=== PATIENT | female | born 1985 | race Caucasian/White ===

== ENCOUNTER 2022-01-08 05:18 | Observation (INO) | payer OTHER, SELFPAY ==
[2022-01-08] VITALS (14 sets, daily range): BP systolic 135–159; BP diastolic 87–100; PULSE 73–94; RESP 12–20; TEMP 36.4–36.9; O2SAT 96–99; BMI 29.6
--- NOTE | 2022-01-08 | PATH_ITS ---
[facility] Accession Number: [id number] . 01 Material submitted: . product of conception - RETAINED PLACENTA . 01 Clinical history: . POST BLEEDING . 01 Diagnosis: Retained Placenta: Fragments of endometrium and myometrium in a background of blood and fibrin. No definite products of conception identified. Avulsed portion of atypical squamous mucosa; favor a reactive etiology. No definite squamous dysplasia identified. MRV 01/13/2022 1606 Local . 01 Electronically signed: . Lena Dallas MD, Pathologist NPI- [id number] . 01 Gross description: . Received in formalin labeled with the patient's name and retained placenta consists of multiple red-brown to leblanc soft tissue fragments aggregating to 6.0 x 5.3 x 1.0 cm. [employer] sections are submitted in cassettes A1-A2. ([id number]) /MRV 01/09/2022 1511 Local . 01 Pathologist provided ICD-10: O72.2 . 01 CPT . 707175 Specimen Comment: A courtesy copy of this report has been sent to [phone] Performed at: 01 [facility] [address] [place] [address], [place], [place] [id number] MD Aj Sandoval MD Phone: [phone]
--- NOTE | 2022-01-08 05:34 | DI.US.S_ITS ---
PROCEDURE: US PELVIC COMPLETE INDICATIONS: post bleeding TECHNIQUE: Real-time scanning was performed of the pelvic organs, with image documentation. Additional endovaginal scanning was necessary due to incomplete visualization of the adnexal and endometrial structures by transabdominal scanning. COMPARISON: None. FINDINGS: Uterus: Uterus is anteverted and enlarged in size at 12.2 x 6.7 x 11.4 cm. The myometrium is homogeneous. The endometrium is heterogeneous and measures 14 mm combined thickness. There is a mildly echogenic nonvascular mass noted within the endometrium measuring 1.3 x 2.0 x 1.4 cm. No internal vascularity or peripheral vascularity seen. Normal vascularity of the remaining endometrium. Ovaries: The right ovary measures 2.9 x 1.7 x 2.0 cm. The left ovary was not visualized. The right ovary has a normal sonographic appearance. No adnexal masses are seen. Other: No pathologic free abdominal or pelvic fluid. IMPRESSION: Mildly enlarged uterus compatible with state with nonvascular mildly hyperechoic endometrium mass measuring 1.4 cm in size. Findings may represent a clot versus nonvascular retained products of conception. We strive to produce accurate, complete, and clear reports of imaging services. To assist us in improving patient care, this report was composed using standard report templates and voice recognition software. Therefore, it may contain abnormal punctuation, insertions and/or omissions. Occasional wrong-word or sound-alike substitutions may occur. Though we review the report and make efforts to correct it, we do recommend that the report be read carefully in proper context to recognize any text inaccuracies. Dictated by: Neftali Walker M.D. on 01/08/2022 at 7:55 Approved by: Neftali Walker M.D. on 01/08/2022 at 7:59
--- NOTE | 2022-01-08 05:34 | ED_ITS ---
HPI - General Chief complaint: OB/Uterine Contractions Stated complaint: bleeding Time Seen by Provider: 01/08/22 05:20 Source: patient Mode of arrival: Ambulatory Limitations: no limitations History of Present Illness HPI Narrative: 36-year-old female nonsmoker is 8 days removed from a vaginal delivery at 38w6d that she reports resulted in a small grade 1 laceration. She presents with her in the chief complaint of significant increase in vaginal bleeding in the passage of clots this morning. She states that she is been having a small amount of bleeding over the course of the week but it became significant today. She is not dizzy nor weak or lightheaded. She denies any fever chills and has had no chest pain or shortness of breath. She denies dysuria, frequency or urgency. She did have complications of preeclampsia during the delivery. She had spoken with the on-call provider for her group and was encouraged to present here for evaluation. Patient has been NPO since 1700 Related Data Home Medications Medication Instructions Recorded Confirmed aspirin 81 mg tablet 81 mg PO DAILY 01/08/22 01/08/22 [id number]-[id number]-[id number] 1 tab 01/08/22 50 mg-325 mg-40 mg tablet ibuprofen 600 mg tablet 600 mg 01/08/22 metformin 500 mg tablet,extended 2,000 mg PO 01/08/22 release 24 hr Allergies Allergy/AdvReac Type Severity Reaction Status Date / Time No Known Drug Allergies Allergy Verified 01/08/22 08:52 Review of Systems Review of Systems Narrative: GENERAL: Denies chills, fatigue, malaise, fever, sweats. HEENT: Denies sinus pain, ear pain, sore throat, difficulty swallowing, dizziness. RESPIRATORY: Denies dyspnea, cough, wheezing, hemoptysis, sputum. CARDIOVASCULAR: Denies chest pain, palpitations, orthopnea, edema, GASTROINTESTINAL: Denies nausea, vomiting, abdominal pain, diarrhea, constipation, melena. : See HPI MUSCULOSKELETAL: denies weakness, joint pain, or bony pain SKIN: Denies rash, skin lesions, or other NEUROLOGIC: Denies weakness, headache, numbness, change in speech, confusion, seizures, incoordination. PSYCHIATRIC: No concerning psychosocial issues. 12 point review of systems is negative except for those stated above Exam Narrative Exam Narrative: GENERAL: [36] year old patient appears stated age. Well-developed patient, in mild distress. HEAD: Atraumatic. Normocephalic. EYES: Pupils equal round and reactive. Extraocular motions intact. No scleral icterus. No injection or drainage. ENT: Nose without bleeding, purulent drainage. Throat without erythema, tonsillar hypertrophy or exudate. Airway patent. NECK: Trachea midline. Non tender CARDIOVASCULAR: Regular rate and rhythm without murmurs, gallops, or rubs. RESPIRATORY: Clear to auscultation. Breath sounds equal bilaterally. No wheezes, rales, or rhonchi. GASTROINTESTINAL: Abdomen soft, non-tender, nondistended. PELVIC: large amount of fresh red external blood and fresh clots with active flow. Patient experiencing significant discomfort with gentle use of speculum, exam stopped at this point. Performed the patient permission and female nurse fluid jet cutter operator at the bedside EXTREMITIES: No edema or joint tenderness. BACK: Nontender without deformity or crepitance. No flank tenderness. NEURO: AOx3. SKIN: No rash or erythema of visible areas Initial Vital Signs Initial Vital Signs: Vital Signs Temperature 97.5 F L 01/08/22 05:25 Pulse Rate 94 H 01/08/22 05:25 Respiratory Rate 20 01/08/22 05:25 Blood Pressure 153/92 H 01/08/22 05:25 Pulse Oximetry 96 01/08/22 05:25 Oxygen Delivery Method 01/08/22 05:25 Course Orders Ordered: Discontinued Medications Fentanyl (Fentanyl 100 Mcg/2 Ml Inj) 50 mcg IV NOW ONE Stop: 01/08/22 10:15 Last Admin: 01/08/22 10:19 Dose: 50 mcg Documented By: YNES Tranexamic Acid 1,000 mg/ (Sodium Chloride) 100 mls @ 200 mls/hr IV NOW ONE Stop: 01/08/22 07:10 Last Infusion: 01/08/22 07:31 Dose: 0 mls/hr Documented By: Admin: 01/08/22 06:53 Dose: 200 mls/hr Documented By: ABY Lactated Ringer's (Lactated Ringers) 1,000 mls @ 42 mls/hr IV CONT PRASHANT Last Infusion: 01/08/22 11:04 Dose: 0 mls/hr Documented By: Admin: 01/08/22 08:59 Dose: 42 mls/hr Documented By: EMORY Methylergonovine Maleate (Methylergonovine 0.2 Mg/Ml Vial) 0.2 mg IM NOW ONE Stop: 01/08/22 06:42 Last Admin: 01/08/22 07:24 Dose: 0.2 mg Documented By: CHELSEA Ondansetron HCl (Ondansetron 4 Mg/2 Ml Inj) 4 mg IV NOW ONE Stop: 01/08/22 08:10 Last Admin: 01/08/22 08:15 Dose: 4 mg Documented By: MELISSA Oxycodone/Acetaminophen (Oxycodone/Acetaminophen 5/325 Tablet) 1 tab PO Q4HR PRN PRN Reason: Pain, Moderate (4-6) Last Admin: 01/08/22 10:10 Dose: 1 tab Documented By: MH Consultations Consultation #1: Dr. Yash Marks will be in the emergency department to see and evaluate the patient at the bedside plans to take to the OR this morning Vital Signs Vital signs: Vital Signs - 8 hr 01/08/22 05:25 Temperature 97.5 F L Pulse Rate 94 H Respiratory Rate 20 Blood Pressure 153/92 H Pulse Oximetry 96 Oxygen Delivery Method Room Air MDM - OB/Uterine Contractions Lab Data Result diagrams: 01/08/22 05:48 01/08/22 06:30 Labs: Lab Results 01/08/22 01/08/22 01/08/22 Range/Units 05:48 05:48 06:30 WBC 9.7 (4.5-11.0) X10^3/uL RBC 4.43 (4.0-5.2) X10^6/uL Hgb 12.0 (12.0-16.0) g/dL Hct 35.8 L (36-46) % MCV 80.8 (80-100) fL MCH 27.0 (26-34) PG MCHC 33.4 (30-36) % RDW 15.0 H (11.6-14.8) % Plt Count 455 H (150-400) X10^3/uL Neut % (Auto) 65.2 (50-75) % Lymph % (Auto) 26.3 (25-40) % Roane % (Auto) 5.5 (3-14) % Eos % (Auto) 2.5 (2-4) % Baso % (Auto) 0.5 (0-2) % Neut # (Auto) 6300 (7209-8525) /uL Lymph # (Auto) 2500 (5235-5300) /uL Roane # (Auto) 500 (0-900) /uL Eos # (Auto) 200 (0-450) /uL Baso # (Auto) 100 (0-100) /uL PT (10.1-12.7) SECONDS INR (0.9-1.3) APTT (26-36) SECONDS Sodium 138 (137-145) mmol/L Potassium 4.2 (3.4-5.1) mmol/L Chloride 108 H (98-107) mmol/L Carbon Dioxide 22 (22-32) mmol/L BUN 26 H (7-17) mg/dL Creatinine 0.87 (0.52-1.04) mg/dL Estimated GFR > 60 (>60) mL/min BUN/Creatinine Ratio 29.9 H (6-22) Glucose 102 H (70-100) mg/dL Uric Acid (2.5-6.2) mg/dL Calcium 8.7 (8.4-10.2) mg/dL Total Bilirubin 0.3 (0.2-1.3) mg/dL AST 22 (14-36) IU/L ALT 20 (<35) IU/L Alkaline Phosphatase 81 (38-126) U/L Lactate Dehydrogenase (313-618) U/L Total Protein 6.6 (6.3-8.2) g/dL Albumin 3.4 L (3.5-5.0) g/dL Globulin 3.2 (1.7-4.1) g/dL Albumin/Globulin Ratio 1.1 (1.0-2.8) HCG, Quant mIU/mL SARS-CoV-2 (PCR) (Negative) Blood Type O Positive Antibody Screen Negative 01/08/22 01/08/22 01/08/22 Range/Units 06:30 06:30 06:30 WBC (4.5-11.0) X10^3/uL RBC (4.0-5.2) X10^6/uL Hgb (12.0-16.0) g/dL Hct (36-46) % MCV (80-100) fL MCH (26-34) PG MCHC (30-36) % RDW (11.6-14.8) % Plt Count (150-400) X10^3/uL Neut % (Auto) (50-75) % Lymph % (Auto) (25-40) % Roane % (Auto) (3-14) % Eos % (Auto) (2-4) % Baso % (Auto) (0-2) % Neut # (Auto) (2466-6254) /uL Lymph # (Auto) (2985-7317) /uL Roane # (Auto) (0-900) /uL Eos # (Auto) (0-450) /uL Baso # (Auto) (0-100) /uL PT 10.9 (10.1-12.7) SECONDS INR 1.0 (0.9-1.3) APTT 35 (26-36) SECONDS Sodium (137-145) mmol/L Potassium (3.4-5.1) mmol/L Chloride (98-107) mmol/L Carbon Dioxide (22-32) mmol/L BUN (7-17) mg/dL Creatinine (0.52-1.04) mg/dL Estimated GFR (>60) mL/min BUN/Creatinine Ratio (6-22) Glucose (70-100) mg/dL Uric Acid 5.8 (2.5-6.2) mg/dL Calcium (8.4-10.2) mg/dL Total Bilirubin (0.2-1.3) mg/dL AST (14-36) IU/L ALT (<35) IU/L Alkaline Phosphatase (38-126) U/L Lactate Dehydrogenase 440 (313-618) U/L Total Protein (6.3-8.2) g/dL Albumin (3.5-5.0) g/dL Globulin (1.7-4.1) g/dL Albumin/Globulin Ratio (1.0-2.8) HCG, Quant 47.7 mIU/mL SARS-CoV-2 (PCR) (Negative) Blood Type Antibody Screen 01/08/22 Range/Units 06:43 WBC (4.5-11.0) X10^3/uL RBC (4.0-5.2) X10^6/uL Hgb (12.0-16.0) g/dL Hct (36-46) % MCV (80-100) fL MCH (26-34) PG MCHC (30-36) % RDW (11.6-14.8) % Plt Count (150-400) X10^3/uL Neut % (Auto) (50-75) % Lymph % (Auto) (25-40) % Roane % (Auto) (3-14) % Eos % (Auto) (2-4) % Baso % (Auto) (0-2) % Neut # (Auto) (6032-2109) /uL Lymph # (Auto) (4307-5245) /uL Roane # (Auto) (0-900) /uL Eos # (Auto) (0-450) /uL Baso # (Auto) (0-100) /uL PT (10.1-12.7) SECONDS INR (0.9-1.3) APTT (26-36) SECONDS Sodium (137-145) mmol/L Potassium (3.4-5.1) mmol/L Chloride (98-107) mmol/L Carbon Dioxide (22-32) mmol/L BUN (7-17) mg/dL Creatinine (0.52-1.04) mg/dL Estimated GFR (>60) mL/min BUN/Creatinine Ratio (6-22) Glucose (70-100) mg/dL Uric Acid (2.5-6.2) mg/dL Calcium (8.4-10.2) mg/dL Total Bilirubin (0.2-1.3) mg/dL AST (14-36) IU/L ALT (<35) IU/L Alkaline Phosphatase (38-126) U/L Lactate Dehydrogenase (313-618) U/L Total Protein (6.3-8.2) g/dL Albumin (3.5-5.0) g/dL Globulin (1.7-4.1) g/dL Albumin/Globulin Ratio (1.0-2.8) HCG, Quant mIU/mL SARS-CoV-2 (PCR) Negative (Negative) Blood Type Antibody Screen Discharge Plan Departure Patient Disposition: Admitted to Surgery Clinical Impression: Retained placenta, hemorrhage Admit Date/Time: 01/08/22 08:07 Admit Provider: David Marks
[2022-01-08 06:04] LABS: Add Manual Diff / Slide Review NO; Basophils Absolute Auto 100 /uL (0-100); Basophils Percent Auto 0.5 % (0-2); Eosinophils Absolute Auto 200 /uL (0-450); Eosinophils Percent Auto 2.5 % (2-4); Hematocrit 35.8 % (36-46); Lymphocytes Absolute Auto 2500 /uL (1100-4500); Lymphocytes Percent Auto 26.3 % (25-40); Mean Corpuscular HGB Conc 33.4 % (30-36); Mean Corpuscular Volume 80.8 fL (80-100); Monocytes Absolute Auto 500 /uL (0-900); Monocytes Percent Auto 5.5 % (3-14); Neutrophils Absolute Auto 6300 /uL (1500-7000); Neutrophils Percent Auto 65.2 % (50-75); Platelet Count 455 X10^3/uL (150-400); Red Blood Cell Count 4.43 X10^6/uL (4.0-5.2); White Blood Cell Count 9.7 X10^3/uL (4.5-11.0)
[2022-01-08 06:51] LABS: Prothrombin Time 10.9 SECONDS (10.1-12.7)
[2022-01-08] MEDS: TRANEXAMIC ACID 1,000 MG in SODIUM CHLORIDE 0.9% 100 ML 200 MG IV (06:53)
[2022-01-08 06:54] LABS: PTT Partial Thromboplastin Tim 35 SECONDS (26-36)
[2022-01-08 06:58] LABS: Alanine Aminotransferase 20 IU/L (<35); Albumin 3.4 g/dL (3.5-5.0); Albumin Globulin Ratio 1.1 (1.0-2.8); Alkaline Phosphatase 81 U/L (38-126); Aspartate Aminotransferase 22 IU/L (14-36); BUN Creatinine Ratio 29.9 (6-22); Bilirubin Total 0.3 mg/dL (0.2-1.3); Blood Urea Nitrogen 26 mg/dL (7-17); Calcium 8.7 mg/dL (8.4-10.2); Carbon Dioxide 22 mmol/L (22-32); Chloride 108 mmol/L (98-107); Estimated Glomerular Filt Rate > 60 mL/min (>60); Globulin 3.2 g/dL (1.7-4.1); Glucose 102 mg/dL (70-100); HEMOLYSIS < 15 (0-50); Potassium 4.2 mmol/L (3.4-5.1); Sodium 138 mmol/L (137-145); Total Protein 6.6 g/dL (6.3-8.2)
[2022-01-08 06:59] LABS: Lactate Dehydrogenase 440 U/L (313-618); Uric Acid 5.8 mg/dL (2.5-6.2)
[2022-01-08 07:17] LABS: HCG Quantitative /Beta subunit 47.7 mIU/mL
[2022-01-08 07:23] LABS: COVID19 -Nasal RAPID Negative (Negative)
[2022-01-08] MEDS: METHYLERGONOVINE 0.2 MG/ML VIAL IM (07:24)
--- NOTE | 2022-01-08 07:45 | PM.GYNHP.1 ---
History of Present Illness History of Present Illness Reason for admission: vaginal bleeding Narrative: Steffi Finley is a 36 year old , status post vaginal on 12/31/[address] [facility] who presents with an 18 hour history of steadily increasing vaginal bleeding and cramping. Patient's was complicated by pre gestational type 2 diabetes of 6 years, gestational hypertension, and advanced maternal age. In addition while her delivery was uneventful with a small vaginal laceration repaired at the time of delivery, the placenta, which delivered spontaneously, was bilobed. The patient actually has a photograph of the placenta on her phone and the appearance suggests that there may be some marginal areas of the larger placental body with missing fragments. Pelvic ultrasound obtained in the emergency room here at [facility] shows significant echogenicity within the endometrial cavity with most but not all avascular nature on Doppler. The appearance is consistent with retained placental fragments and/or organized clots and debris. FORMERLY [facility], [facility] Social History Smoking Status: Never smoker Review of Systems Review of Systems Narrative: Problem-specific ROS positives included in HPI Exam Vital Signs (past 8 hours): - 01/08/22 05:25 Temperature 97.5 F L Pulse Rate 94 H Respiratory Rate 20 Blood Pressure 153/92 H Pulse Oximetry 96 Oxygen Delivery Method Room Air Oxygen Delivery Method Room Air Const General: cooperative and comfortable Nutritional Appearance: average body habitus Orientation: alert and oriented x3 HENMT Head: normal to inspection, atraumatic and abrasion Ears: hearing grossly normal bilaterally Face and sinus: face symmetric Mouth: oral mucosae normal Teeth and gingiva: dentition normal Throat: posterior oropharynx normal Eyes General: appearance normal, both eyes and all related structures Conjunctivae: conjunctivae normal Sclera: sclerae normal EOM: EOM intact bilaterally Neck Neck: normal visual inspection Thyroid: thyroid normal Resp Effort & Inspection: normal respiratory effort and able to speak in complete sentences Auscultation: clear to auscultation bilaterally Cardio Rate: regular rate Rhythm: regular rhythm Heart Sounds: S1 normal, S2 normal and no murmurs GI Inspection: normal to inspection Palpation: soft, no hepatosplenomegaly, mass (12-14 wk, mildly tender fundus) and tender (Mild, lower abdominal tenderness) External Female Exam: other (Moderate bleeding noted) Speculum Exam - Cervix: other (Unable to visualize due to bleeding) Extrem General: no calf tenderness Psych Appearance: grossly normal Mental Status: mental status grossly normal Speech and Movement: speech and movement normal Mood: congruent mood Affect: normal affect Attitude: cooperative Thought Process: normal Thought Content: normal Judgment: judgment good Objective Labs Result Diagrams: 01/08/22 05:48 01/08/22 06:30 Labs: Laboratory Results - last 24 hr 01/08/22 01/08/22 01/08/22 05:48 06:30 06:30 WBC 9.7 RBC 4.43 Hgb 12.0 Hct 35.8 L MCV 80.8 MCH 27.0 MCHC 33.4 RDW 15.0 H Plt Count 455 H Neut % (Auto) 65.2 Lymph % (Auto) 26.3 Andrews % (Auto) 5.5 Eos % (Auto) 2.5 Baso % (Auto) 0.5 Neut # (Auto) 6300 Lymph # (Auto) 2500 Andrews # (Auto) 500 Eos # (Auto) 200 Baso # (Auto) 100 PT 10.9 INR 1.0 APTT 35 Sodium 138 Potassium 4.2 Chloride 108 H Carbon Dioxide 22 BUN 26 H Creatinine 0.87 Estimated GFR > 60 BUN/Creatinine Ratio 29.9 H Glucose 102 H Uric Acid Calcium 8.7 Total Bilirubin 0.3 AST 22 ALT 20 Alkaline Phosphatase 81 Lactate Dehydrogenase Total Protein 6.6 Albumin 3.4 L Globulin 3.2 Albumin/Globulin Ratio 1.1 HCG, Quant SARS-CoV-2 (PCR) 01/08/22 01/08/22 01/08/22 06:30 06:30 06:43 WBC RBC Hgb Hct MCV MCH MCHC RDW Plt Count Neut % (Auto) Lymph % (Auto) Andrews % (Auto) Eos % (Auto) Baso % (Auto) Neut # (Auto) Lymph # (Auto) Andrews # (Auto) Eos # (Auto) Baso # (Auto) PT INR APTT Sodium Potassium Chloride Carbon Dioxide BUN Creatinine Estimated GFR BUN/Creatinine Ratio Glucose Uric Acid 5.8 Calcium Total Bilirubin AST ALT Alkaline Phosphatase Lactate Dehydrogenase 440 Total Protein Albumin Globulin Albumin/Globulin Ratio HCG, Quant 47.7 SARS-CoV-2 (PCR) Negative Assessment & Plan Assessment and plan (1) Retained placenta and uterine membrane: Status: Acute (2) hemorrhage: Status: Acute Plan IV tranexamic acid 1000 mg and Methergine 0.2 mg IM given in ED After discussion of options for management of her bleeding, the patient and her concur with the recommended plan to proceed with suction curettage of the uterus to evacuated retained placental fragments, membranes, and clots within the uterine cavity. Patient and her were then counseled regarding alternatives, risks, benefits, and potential complications associated with suction curettage of the uterus. Preoperative orders placed. Time Spent With Patient Time with patient: less than 30 minutes
[2022-01-08] MEDS: ONDANSETRON 4 MG/2 ML INJ IV (08:15)
--- NOTE | 2022-01-08 08:19 | PM.PREOP ---
Pre-operative Note COVID-19 COVID-19 status: Negative Result date/Date tested (Pos, Neg/Pending): 01/08/22 Criteria for continued procedure: Non-surgical alternatives not available or appropriate per current SOC Interval Note History & Physical reviewed/Exam performed by Physician: Yes Changes to H&P: No H&P completed within 30 days and has changed as indicated here:: 01/08/22
--- NOTE | 2022-01-08 08:28 | SUR.OPER ---
Lithotomy on padded OR bed, head on pillow, arms secured on padded arm boards at <90 degrees abduction. Legs secured in padded yellow fins stirrups.
[2022-01-08] MEDS: LACTATED RINGERS 1,000 ML 42 ML IV (08:59)
--- NOTE | 2022-01-08 09:50 | P.OP_ITS ---
Operative Date/Time/Diagnoses Date of procedure: 01/08/22 Time of procedure: 09:50 Pre-op diagnosis: Retained placenta Breakdown of obstetrical laceration repair Post-op diagnosis: same Procedure & Clinicians Procedure: Procedures Operation Date: 01/08/22 08:30 Actual Procedure Side Surgeon estevan Vick D&C for retained placenta, redo obstetrical laceration repair Rachel Mckeon MD Indications: Retained placenta Breakdown of obstetrical laceration repair Surgeon: Rachel Mckeon Anesthesia Type: General (LMA) Operative Notes Findings: 12 week size anteverted uterus Small amount of retained placenta On the proximal vaginal wall and perineum there was a breakdown of the obstetrical laceration repair Closure Type: primary Specimen(s): other (Retained placenta) Estimated blood loss (mL): 150 Blood products transfused: none Procedure in detail: After informed consent was obtained, the patient was taken to the operating room where she was placed in the dorsal supine position. After adequate LMA general anesthesia was achieved, she was placed in the dorsal lithotomy position, and prepped and draped in the usual sterile fashion. A time-out was performed. A bivalve speculum was placed into the vagina and the anterior lip of the cervix was grasped with a single-tooth tenaculum. The cervical os was open. The # 8 curved plastic curette passed easily into the endometrial cavity. Several passes with suction revealed some pieces of tissue and clot. The curette was removed. Sharp curettage was performed yielding a large amount of curettings. Plastic curette passed again easily into the endometrial cavity. Several passes with suction revealed some tissue on the first 2 passes and blood only on the last 3 passes. The instruments were removed from the uterus. There was minimal bleeding from the cervical os. Single-tooth tenaculum was removed from the anterior lip of the cervix. The bivalve speculum was removed from the vagina. Just inside the vagina there were loose pieces of chromic suture with a gaping o bstetrical laceration site. The chromic suture was removed. Using 2 0 chromic, the apex of the laceration was marked. The remainder of the laceration was closed with a running interlocking suture. Hemostasis was achieved. Sponge, lap, and instrument counts were correct x2. The patient tolerated the procedure well, and was taken to PACU in stable condition. Complications: none Post-operative Condition: stable Disposition: PACU Plan for aftercare: Home after recovery
[2022-01-08] MEDS: OXYCODONE/ACETAMINOPHEN 5/325 TABLET 1 TAB PO (10:10)
[2022-01-08] MEDS: fentaNYL 100 MCG/2 ML INJ 50 MCG IV (10:19)
== END 2022-01-08 12:11 | disposition home or self-care (01) ==
LOC: ED 07:56 → AC 08:08
PROVIDERS: Emergency Medicine; Obstetrics & Gynecology; Admitting Provider Obstetrics & Gynecology; Emergency Provider Emergency Medicine; Referring Provider Emergency Medicine; Visit Provider Obstetrics & Gynecology
PROC: (CPT 58120; principal; 2022-01-08 08:30)
DX: O72.2 Delayed and secondary postpartum hemorrhage (principal); O70.0 First degree perineal laceration during delivery; Z20.822 Contact with and (suspected) exposure to COVID-19
CPT/HCPCS: 59160; 57200; 36415; 76830; 76856; 80053; 83615; 84550; 84702; 85025; 85610; 85730; 86850; 86900; 86901; 87635; 96365; 96372; 96375; 99218; 99284; C9803; G0378; J1100; J2210; J2250; J2405; J2704; J3010

== ENCOUNTER 2024-06-02 14:45 | Emergency (ER) | payer OTHER, SELFPAY ==
[2024-06-02 14:59] VITALS: BP 146/94; PULSE 88; RESP 18; TEMP 36.5; O2SAT 100; BMI 33.4
--- NOTE | 2024-06-02 15:50 | ED.DENTAL ---
HPI - Dental/Oral <Arianne Nova PA-C - Last Filed: 06/02/24 19:02> General Chief complaint: Dental/Oral Stated complaint: gum pain spreading to L ear Time Seen by Provider: 06/02/24 15:42 Source: patient Mode of arrival: Ambulatory History of Present Illness HPI Narrative: Ms. Thayer is a pleasant 38-year-old female with a past medical history of type 2 diabetes on metformin, left facial/sinus cyst removed 8 years ago who presents to the emergency department for left-sided upper dental/jaw pain radiating to the left facial cheek x1 day. Patient states 8 years ago she had a cyst in her sinus that was removed which had similar symptoms. States over the last month she has had some intermittent in pain and swelling sensation in the left upper jaw however just yesterday the pain got much worse and is now preventing her from opening her jaw fully. She also has a foul taste in the back of her mouth. She had twins a year ago and has not been able to follow up with facial imaging or a dentist since then. She denies fevers, chills, nausea, vomiting, flu-like symptoms. No medications prior to arrival. No medication allergies. History of bilateral tubal ligation. Related Data Home Medications Medication Instructions Recorded Confirmed aspirin 81 mg tablet 81 mg PO DAILY 01/08/22 01/08/22 [id number] 1 tab 01/08/22 50 mg-325 mg-40 mg tablet ibuprofen 600 mg tablet 600 mg 01/08/22 metformin 500 mg tablet,extended 2,000 mg PO 01/08/22 release 24 hr Previous Rx's Medication Instructions Recorded amoxicillin 875 mg-potassium 1 tab PO Q12H 10 days #20 tabs 06/02/24 clavulanate 125 mg tablet fluconazole 100 mg tablet 150 mg (1.5 x 100 mg) PO .once #1 06/02/24 (Diflucan) tab ondansetron 4 mg disintegrating 4 mg PO Q8H PRN nausea and 06/02/24 tablet vomiting #14 tabs Allergies Allergy/AdvReac Type Severity Reaction Status Date / Time No Known Drug Allergies Allergy Verified 06/02/24 14:58 Review of Systems <Arianne Nova PA-C - Last Filed: 06/02/24 19:02> Review of Systems ROS Unobtainable: All systems reviewed & are unremarkable except as noted in HPI and below Patient History <Arianne Nova PA-C - Last Filed: 06/02/24 19:02> Social History household members: significant other Smoking Status: Never smoker alcohol intake: never Smoking Status: Never smoker Exam <Arianne Nova PA-C - Last Filed: 06/02/24 19:02> Narrative Exam Narrative: GENERAL: 38 year old patient appears stated age. Well-developed patient, in no acute distress. HEAD: Atraumatic. Normocephalic. EYES: No scleral icterus. No injection or drainage. ENT: TMs normal BL. Nose without bleeding, purulent drainage. Patient only able to open her mouth about 3 finger widths due to pain in the left upper jaw. On the left upper jaw, behind the last tooth (#15) there is a small pustule that is very tender to palpation on the mucobuccal fold. No tenderness to percussion of the teeth. Floor of the mouth soft, no submandibular swelling. Posterior oropharynx clear. NECK: Trachea midline. Cervical ROM intact. CARDIOVASCULAR: Regular rate and rhythm. RESPIRATORY: ?Nonlabored respirations. ?Speaking in clear, full sentences. ?Clear to auscultation. Breath sounds equal bilaterally. No wheezes, rales, or rhonchi. ? NEURO: AOx3. ?Clear speech. ?Moves all 4 extremities appropriately. SKIN: No rash or erythema of visible areas Initial Vital Signs Initial Vital Signs: Vital Signs Temperature 97.7 F 06/02/24 14:59 Pulse Rate 88 06/02/24 14:59 Respiratory Rate 18 06/02/24 14:59 Blood Pressure 146/94 H 06/02/24 14:59 Pulse Oximetry 100 06/02/24 14:59 Oxygen Delivery Method Room Air 06/02/24 14:59 <Jacqueline Carroll DO - Last Filed: 06/05/24 08:01> Initial Vital Signs Initial Vital Signs: Vital Signs Temperature 97.7 F 06/02/24 14:59 Pulse Rate 88 06/02/24 14:59 Respiratory Rate 18 06/02/24 14:59 Blood Pressure 146/94 H 06/02/24 14:59 Pulse Oximetry 100 06/02/24 14:59 Oxygen Delivery Method Room Air 06/02/24 14:59 Course <Arianne Nova PA-C - Last Filed: 06/02/24 19:02> Orders Ordered: Discontinued Medications Amoxicillin/Clavulanate Potassium (Amoxicillin/Clav 875/125 Mg) 1 tab PO NOW ONE Stop: 06/02/24 18:18 Last Admin: 06/02/24 18:50 Dose: 1 tab Documented By: ABY Ketorolac Tromethamine (Ketorolac 30 Mg/Ml Vial) 15 mg IV NOW ONE Stop: 06/02/24 16:02 Last Admin: 06/02/24 16:21 Dose: 15 mg Documented By: ABY Vital Signs Vital signs: Vital Signs - 8 hr 06/02/24 14:59 06/02/24 18:58 Temperature 97.7 F Pulse Rate 88 83 Respiratory Rate 18 16 Blood Pressure 146/94 H 163/85 H Pulse Oximetry 100 100 Oxygen Delivery Method Room Air Room Air <Jacqueline Carroll DO - Last Filed: 06/05/24 08:01> Orders Ordered: Discontinued Medications Amoxicillin/Clavulanate Potassium (Amoxicillin/Clav 875/125 Mg) 1 tab PO NOW ONE Stop: 06/02/24 18:18 Last Admin: 06/02/24 18:50 Dose: 1 tab Documented By: ABY Ketorolac Tromethamine (Ketorolac 30 Mg/Ml Vial) 15 mg IV NOW ONE Stop: 06/02/24 16:02 Last Admin: 06/02/24 16:21 Dose: 15 mg Documented By: ABY Vital Signs Vital signs: Vital Signs - 8 hr 06/02/24 14:59 06/02/24 18:58 Temperature 97.7 F Pulse Rate 88 83 Respiratory Rate 18 16 Blood Pressure 146/94 H 163/85 H Pulse Oximetry 100 100 Oxygen Delivery Method Room Air Room Air MDM - Dental/Oral <DELROY Candelario Last Filed: 06/02/24 19:02> Medical Records Attestation: I reviewed the patient's medical records. Lab Data 06/02/24 16:08 06/02/24 16:08 Labs: Lab Results 06/02/24 Range/Units 16:08 WBC 12.7 H (4.5-11.0) X10^3/uL RBC 4.80 (4.0-5.2) X10^6/uL Hgb 12.8 (12.0-16.0) g/dL Hct 38.2 (36-46) % MCV 79.5 L (80-100) fL MCH 26.6 (26-34) PG MCHC 33.4 (30-36) % RDW 13.9 (11.6-14.8) % Plt Count 433 H (150-400) X10^3/uL Neut % (Auto) 73.0 (50-75) % Lymph % (Auto) 18.4 L (25-40) % Morehouse % (Auto) 6.7 (3-14) % Eos % (Auto) 1.0 L (2-4) % Baso % (Auto) 0.9 (0-2) % Neut # (Auto) 9300 H (3804-5426) /uL Lymph # (Auto) 2300 (7601-5468) /uL Morehouse # (Auto) 900 (0-900) /uL Eos # (Auto) 100 (0-450) /uL Baso # (Auto) 100 (0-100) /uL Sodium 137 (137-145) mmol/L Potassium 4.4 (3.4-5.1) mmol/L Chloride 102 (98-107) mmol/L Carbon Dioxide 26 (22-32) mmol/L BUN 18 H (7-17) mg/dL Creatinine 0.91 (0.52-1.04) mg/dL Estimated GFR > 60 (>60) mL/min BUN/Creatinine Ratio 19.8 (6-22) Glucose 158 H (70-100) mg/dL Calcium 9.6 (8.4-10.2) mg/dL Imaging Data CT Scan Face with contrast: Radiologist's Impression: PROCEDURE: CT FACIAL BONES W CON INDICATIONS: Left facial pain/swelling; concern abscess TECHNIQUE: After the administration of intravenous contrast, 2.5 mm axial sections acquired from the mid-neck to the frontal sinuses, with coronal and sagittal reformats. For radiation dose reduction, the following was used: automated exposure control, adjustment of mA and/or kV according to patient size. COMPARISON: None. FINDINGS: Image quality: Excellent. Bones: No acute fracture or dislocation. There is a periapical lucency at the left maxillary molar dentition with dehiscence of the left posterior medial maxillary sinus wall adjacent to the maxillary antrum and lateral pterygoid (3/46; 5/37; 4/39); the expected molar dentition at this level is absent. There is a small amount of asymmetric fat stranding around the retroantral space (3/45). Orbits: No orbital floor fractures. The optic globes, optic nerves, and extraocular muscle contours are within normal limits. No retrobulbar mass. Vascular: No aneurysmal dilatation of the visualized vasculature. Sinuses: Mucosal thickening in the right maxillary sinus. The remainder of the paranasal sinuses are clear. Mastoids: The mastoid air cells and middle ear cavities are clear. IMPRESSION: Overall, findings at the left posterior maxillary sinus wall, which may represent sequelae of a prior fracture or a periapical abscess with subsequent oral-antral fistula formation. No drainable fluid collection or abscess at this time. MDM Narrative Medical decision making narrative: 38-year-old female with a past medical history of type 2 diabetes on metformin, left facial/sinus cyst removed 8 years ago who presents to the emergency department for left-sided upper dental/jaw pain radiating to the left facial cheek x1 day. Differential diagnosis includes but is not limited to periapical abscess, dental abscess, odontogenic abscess, sinus abscess, facial abscess, dental caries, gingivitis, etc. On exam patient is in no acute distress, nontoxic, vital signs appropriate. Afebrile and not tachycardic. In the left upper mucobuccal fold behind the last molar there is a small what appears to be abscess head that is very tender. Pain in the left TMJ is preventing the patient from opening her mouth fully. She has a history of needing surgery to remove a cyst in the left sinus region. We will proceed with a CT scan of face with contrast to evaluate for possible deep abscess, we will treat pain with ketorolac, we will check CBC and BMP. Bilateral tubal ligation. Labs reveal elevated WBC count of 12.7. Normal hemoglobin 12.8, hematocrit 38.2. Platelets 433. Sodium 137, BUN 18, creatinine 0.91. Glucose 158. CT facial bones with contrast reveals findings of the left posterior maxillary sinus wall which may represent sequela of a prior fracture or a periapical abscess with subsequent oral antral fistula formation. No drainable fluid collection or abscess at this time. Fistula is likely related to patient's history of surgery in this area. Due to fat stranding noted on facial CT, elevated white blood cell count, my suspicion is that bacterial sinusitis resulted in drainage through the fistula and the dental cavity. We will cover with Augmentin b.i.d. times 10 days for both dental carmen and sinusitis. Patient was prescribed ondansetron if needed for nausea, Diflucan as requested for potential yeast infection after completion of antibiotics. Discussed the importance of following up with [facility] for further evaluation. Advised prompt follow up with PCP as well. We discussed extensive ED return precautions which the patient verbalized understanding. She is feeling better, eager for discharge home. Advised naproxen/acetaminophen as needed for pain. Patient stable for discharge home. <Jacqueline Carroll DO - Last Filed: 06/05/24 08:01> Lab Data Labs: Lab Results 06/02/24 Range/Units 16:08 WBC 12.7 H (4.5-11.0) X10^3/uL RBC 4.80 (4.0-5.2) X10^6/uL Hgb 12.8 (12.0-16.0) g/dL Hct 38.2 (36-46) % MCV 79.5 L (80-100) fL MCH 26.6 (26-34) PG MCHC 33.4 (30-36) % RDW 13.9 (11.6-14.8) % Plt Count 433 H (150-400) X10^3/uL Neut % (Auto) 73.0 (50-75) % Lymph % (Auto) 18.4 L (25-40) % [place]house % (Auto) 6.7 (3-14) % Eos % (Auto) 1.0 L (2-4) % Baso % (Auto) 0.9 (0-2) % Neut # (Auto) 9300 H (2792-0736) /uL Lymph # (Auto) 2300 (0751-0672) /uL [place] # (Auto) 900 (0-900) /uL Eos # (Auto) 100 (0-450) /uL Baso # (Auto) 100 (0-100) /uL Sodium 137 (137-145) mmol/L Potassium 4.4 (3.4-5.1) mmol/L Chloride 102 (98-107) mmol/L Carbon Dioxide 26 (22-32) mmol/L BUN 18 H (7-17) mg/dL Creatinine 0.91 (0.52-1.04) mg/dL Estimated GFR > 60 (>60) mL/min BUN/Creatinine Ratio 19.8 (6-22) Glucose 158 H (70-100) mg/dL Calcium 9.6 (8.4-10.2) mg/dL Discharge Plan Departure Patient Disposition: Home Clinical Impression: Fistula, dusty-antral Sinusitis Qualifiers: Sinusitis location: unspecified location Chronicity: acute Recurrence: not specified as recurrent Qualified Code(s): J01.90 - Acute sinusitis, unspecified Instructions: DI for Sinusitis, DI for Dental Pain Activity Restrictions/Additional Instructions: Dear Ms. Thayer, Thank you for coming into the emergency department today. You were evaluated for left upper dental/gum/jaw pain. 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 There is also signs of surrounding infection. We are treating you with antibiotics twice daily for the next 10 days. It is very important that you follow up with the oral maxillofacial surgeon for further evaluation. You may call your prior surgeon you can get a referral from your primary care doctor. I have also prescribed you ondansetron which is a nausea medication to use if needed. If you develop a yeast infection after completion of the antibiotics, you may take the prescribed Diflucan pill. Please continue to take naproxen and acetaminophen as needed for pain. Return to the emergency department immediately if you develop worsening symptoms, inability to open the mouth, fevers, trouble swallowing, any other concerns. Please follow up with your primary care doctor within the next 2-3 days for ER follow-up. (If you do not have a PCP you can call [phone]. ?to schedule an appointment with an [facility] Primary Care Provider) IF YOU DEVELOP ANY NEW OR WORSENING SYMPTOMS, RETURN TO THE ER! Please read the attached instructions, they highlight more specific treatments and interventions for you at home. Thank you for letting me participate in your care, Arianne Nova PA-C Prescriptions: New amoxicillin-pot clavulanate 875-125 mg tablet 1 tab PO Q12H 10 Days Qty: 20 0RF fluconazole [Diflucan] 100 mg tablet 150 mg PO .once Qty: 1 0RF Rx Instructions: take 150 mg orally if needed for vaginal yeast infection after completion of antibiotics ondansetron 4 mg tablet,disintegrating 4 mg PO Q8H PRN (Reason: nausea and vomiting) Qty: 14 0RF No Action [id number]-[id number]-[id number] 50-325-40 mg tablet 1 tab Patient Comments: take 1 tablet by mouth every 6 hours if needed for headache USE... (REFER TO PRESCRIPTION NOTES). aspirin 81 mg Tablet 81 mg PO DAILY ibuprofen 600 mg tablet 600 mg Patient Comments: take 1 tablet by mouth every 6 hours if needed for MILD TO MODERATE PAIN take for up to 10 days metformin 500 mg tablet extended release 24 hr 2,000 mg PO Referrals: Miscellaneous,Doctor, MD [Primary Care Provider] - Stand Alone Forms: Patient Portal/API/Survey ED Sign-out <Jacqueline Carroll DO - Last Filed: 06/05/24 08:01> Cosign ED Attending Tasha Attestation: I was available for consultation.
--- NOTE | 2024-06-02 16:00 | DI.CT.S_ITS ---
PROCEDURE: CT FACIAL BONES W CON INDICATIONS: Left facial pain/swelling; concern abscess TECHNIQUE: After the administration of intravenous contrast, 2.5 mm axial sections acquired from the mid-neck to the frontal sinuses, with coronal and sagittal reformats. For radiation dose reduction, the following was used: automated exposure control, adjustment of mA and/or kV according to patient size. COMPARISON: None. FINDINGS: Image quality: Excellent. Bones: No acute fracture or dislocation. There is a periapical lucency at the left maxillary molar dentition with dehiscence of the left posterior medial maxillary sinus wall adjacent to the maxillary antrum and lateral pterygoid (3/46; 5/37; 4/39); the expected molar dentition at this level is absent. There is a small amount of asymmetric fat stranding around the retroantral space (3/45). Orbits: No orbital floor fractures. The optic globes, optic nerves, and extraocular muscle contours are within normal limits. No retrobulbar mass. Vascular: No aneurysmal dilatation of the visualized vasculature. Sinuses: Mucosal thickening in the right maxillary sinus. The remainder of the paranasal sinuses are clear. Mastoids: The mastoid air cells and middle ear cavities are clear. IMPRESSION: Overall, findings at the left posterior maxillary sinus wall, which may represent sequelae of a prior fracture or a periapical abscess with subsequent oral-antral fistula formation. No drainable fluid collection or abscess at this time. Dictated by: Bandar Raymond M.D. on 06/02/2024 at 17:38 Approved by: Bandar Raymond M.D. on 06/02/2024 at 17:45
[2024-06-02] MEDS: KETOROLAC 30 MG/ML VIAL 15 MG IV (16:21)
[2024-06-02 16:29] LABS: Add Manual Diff / Slide Review NO; Basophils Absolute Auto 100 /uL (0-100); Basophils Percent Auto 0.9 % (0-2); Eosinophils Absolute Auto 100 /uL (0-450); Hematocrit 38.2 % (36-46); Hemoglobin 12.8 g/dL (12.0-16.0); Lymphocytes Absolute Auto 2300 /uL (1100-4500); Lymphocytes Percent Auto 18.4 % (25-40); Mean Corpuscular HGB Conc 33.4 % (30-36); Mean Corpuscular Hemoglobin 26.6 PG (26-34); Mean Corpuscular Volume 79.5 fL (80-100); Monocytes Absolute Auto 900 /uL (0-900); Monocytes Percent Auto 6.7 % (3-14); Neutrophils Absolute Auto 9300 /uL (1500-7000); Platelet Count 433 X10^3/uL (150-400); Red Cell Distribution Width 13.9 % (11.6-14.8); White Blood Cell Count 12.7 X10^3/uL (4.5-11.0)
[2024-06-02 16:38] LABS: BUN Creatinine Ratio 19.8 (6-22); Blood Urea Nitrogen 18 mg/dL (7-17); Calcium 9.6 mg/dL (8.4-10.2); Carbon Dioxide 26 mmol/L (22-32); Chloride 102 mmol/L (98-107); Estimated Glomerular Filt Rate > 60 mL/min (>60); Glucose 158 mg/dL (70-100); HEMOLYSIS < 15 (0-50); Potassium 4.4 mmol/L (3.4-5.1); Sodium 137 mmol/L (137-145)
[2024-06-02] MEDS: AMOXICILLIN/CLAV 875/125 MG 1 TAB PO (18:50)
[2024-06-02 18:58] VITALS: BP 163/85; PULSE 83; RESP 16; O2SAT 100
--- NOTE | 2024-06-03 10:43 | PC.NURSE ---
[facility] pharmacist calls to clarify diclofenac prescription which is ordered as 100mg one tablet and to take 150mg once. Dr. Pena states to change order to 200mg po once. I provided this information to pharmacist who states she will change the order.
== END 2024-06-02 19:00 | disposition home or self-care (01) ==
PROVIDERS: Emergency Provider Physician Assistant
DX: J01.90 Acute sinusitis, unspecified (principal); J32.0 Chronic maxillary sinusitis; E11.9 Type 2 diabetes mellitus without complications; Z79.84 Long term (current) use of oral hypoglycemic drugs
CPT/HCPCS: 36415; 70487; 80048; 85025; 96374; 99284; J1885; Q9967